=== PATIENT | male | born 1945 | race Caucasian/White ===

== ENCOUNTER 2020-10-06 09:44 | Day surgery (SDC) | payer MEDICARE, OTHER ==
[2020-10-06] MEDS ORDERED: Sodium Chloride 0.9% 10 ML Syringe IV ONE (09:45)
[2020-10-06] MEDS ORDERED: Acetaminophen 325 MG Tab PO PRN (09:45)
[2020-10-06] MEDS ORDERED: Ondansetron 4 MG/2 ML SDV IVPUSH PRN (09:45)
[2020-10-06] MEDS ORDERED: Dexamethasone 4 MG/ML SDV IV ONE (09:45)
[2020-10-06] MEDS ORDERED: Sodium Chloride 0.9% 10 ML Syringe FLUSH PRN (09:45)
[2020-10-06] MEDS ORDERED: Acetaminophen/Codeine 300-30 MG Tab PO PRN (09:45)
[2020-10-06] MEDS ORDERED: Midazolam 1 MG/ML 2 ML SDV IV ONE (09:45)
[2020-10-06] MEDS: Proparacaine 0.5% Ophth Soln 15 ML Bottle EYERT ONE (10:08)
[2020-10-06] MEDS: Povidone-Iodine 5% Sterile Ophth Soln 30 ML Bottle EYERT ONE ×2 (10:09→10:46)
[2020-10-06] MEDS: Moxifloxacin 0.5% Ophth Soln 3 ML Bottle EYERT ONE (10:09)
[2020-10-06] MEDS: Phenylephrine 10% Ophth Soln 5 ML Bot EYERT ONE (10:10)
[2020-10-06] MEDS: Tropicamide 1% Ophth Soln 15 ML Bottle EYERT ONE (10:11)
[2020-10-06] MEDS: Timolol Maleate 0.5% Ophth Soln 5 ML Bottle EYERT ONE (10:11)
[2020-10-06] MEDS: Cataract Ophth Solution EYERT ONE (10:12)
[2020-10-06] MEDS: Tetracaine HCl/PF 0.5% 4 ML Bottle EYERT ONE (10:46)
[2020-10-06] MEDS: Diclofenac Sodium 0.1% Ophth Soln 5 ML Bottle EYERT ONE (10:46)
[2020-10-06] MEDS: Dexamethasone/Neomycin/Polymyxin B Ophth Oint 3.5 GM Tube EYERT ONE (10:47)
[2020-10-06] MEDS: Balanced Salt Solution Ophth Irrig 500 ML Bottle IOCULAR ONE (10:47)
[2020-10-06] MEDS: Chondroitin Sulfate/Hyaluronate Sodium Ophth Inj 0.75 ML Syringe EYERT ONE (10:47)
[2020-10-06] MEDS: Apraclonidine 0.5% Ophth Soln 5 ML Bot EYERT ONE (10:47)
[2020-10-06] MEDS: Vancomycin 500 MG SDV EYERT ONE (10:48)
[2020-10-06] MEDS: Acetylcholine 20 MG/2 ML Intraocular Inj Kit EYERT ONE (10:48)
[2020-10-06] MEDS: Chondroitin Sulfate/Hyaluronate Sodium Ophth Inj 0.5 ML Syringe IOCULAR ONE (10:48)
[2020-10-06] MEDS: Lidocaine 1% 30 ML SDV ONE (10:48)
--- NOTE | 2020-10-06 13:07 | OR ---
DATE: 10/06/2020 PREOPERATIVE DIAGNOSES: 1. Visually significant mixed cataract, right eye. 2. Primary open angle glaucoma, right eye. POSTOPERATIVE DIAGNOSES: 1. Visually significant mixed cataract, right eye. 2. Primary open angle glaucoma, right eye. PROCEDURES: 1. Extracapsular cataract extraction with intraocular lens implant. 2. Placement of Hydrus stent for glaucoma control. SURGEON: Ifeanyi Whitley MD ANESTHESIA: Local MAC. INDICATION: Mr. Mcclain was seen in the clinic. He is unhappy with his vision. He has difficulty seeing television, difficulty doing paperwork, difficulty seeing road signs, difficulty reading. Examination revealed visually significant mixed cataract and mild primary open angle glaucoma. I explained options, offered cataract surgery, and I explained risks including the potential for infection, retinal detachment, loss of vision, need for additional surgery, amongst others. He did see his regular production line operator, Dr. Burks. Dr. Burks was not able to improve his vision with a change in glasses. We discussed implant options. He has requested a monofocal implant. I recommended surgery with the Hydrus stent. OPERATIVE DESCRIPTION: The patient was prepped and draped in a sterile fashion and topical anesthesia was applied. Attention was placed on the operative eye. A sterile lid speculum was placed to allow operative exposure. Paracentesis was made temporal. Intracameral lidocaine was administered. Viscoelastic was injected. A full-thickness corneal incision was made using the trapezoidal blade. Bent needle cystotome was then used to make a small bernard in the anterior capsule and a 360-degree curvilinear capsulorrhexis was created. Nucleus was then hydrodissected and hydrodelineated using balanced saline solution. Nucleus was then decompressed centrally and rotated and noted to be free of adhesions. Nucleus was then removed using the phacoemulsification handpiece. Additional viscoelastic was then injected into the capsular bag and the intraocular lens was inserted into the capsular bag. The Hydrus stent portion of the procedure was then performed. Following removal of the nucleus and cortex, the irrigation and aspiration handpiece was inserted to remove viscoelastic from the posterior surface of the IOL. Additional viscoelastic was then inserted into the anterior chamber angle directly opposite the corneal incision. Miochol was injected into the nasal iris to promote pupillary contraction. The patient's head was then rotated 35 degrees away from the initial position. The operating microscope was also rotated 35 degrees to achieve the proper orientation. The gonioprism was then placed onto the eye. The Hydrus stent was then inserted into the anterior chamber with the right hand and the stent was introduced into the pigmented trabecular meshwork. The stent was advanced beneath the trabecular meshwork until approximately two-thirds of the body was covered and then the stent was released from the insertion device. The stent was then tapped into its final resting position using the insertion device. The device was then reinspected to ensure that it was securely in position. The viscoelastic was aspirated from the anterior chamber. Wound and paracentesis sites were hydrated using balanced saline solution. Vancomycin 0.1 mL was injected into the anterior chamber. Intraocular lens was inspected and noted to be clear and well centered. Postoperative drops were placed and a sterile eye patch and shield were placed over the operative eye. The patient was then transported to the postoperative recovery area having tolerated the procedure well. No complications occurred. [facility] /[id number]
[2020-10-07 08:10] VITALS: BP 110/52; PULSE 63
== END 2020-10-06 12:03 | disposition home or self-care (01) ==
LOC: DL.SDS 09:44
PROVIDERS: ATTEND Ophthalmology
DX: H26.8 Other specified cataract (principal); H40.1111 Primary open-angle glaucoma, right eye, mild stage; I10 Essential (primary) hypertension; E78.5 Hyperlipidemia, unspecified; G47.30 Sleep apnea, unspecified; R25.2 Cramp and spasm; Z86.73 Personal history of transient ischemic attack (TIA), and cerebral infarction without residual deficits; Z87.891 Personal history of nicotine dependence
CPT/HCPCS: 00142; A9270-GY; J1100; J2250; J3370; V2632; V2787-GY

== ENCOUNTER 2020-10-13 09:21 | Day surgery (SDC) | payer MEDICARE, OTHER ==
[2020-10-13] MEDS ORDERED: Sodium Chloride 0.9% 10 ML Syringe IV ONE (09:22)
[2020-10-13] MEDS ORDERED: Midazolam 1 MG/ML 2 ML SDV IV ONE (09:22)
[2020-10-13] MEDS ORDERED: Dexamethasone 4 MG/ML SDV IV ONE (09:22)
[2020-10-13] MEDS ORDERED: Acetaminophen 325 MG Tab PO PRN (10:15)
[2020-10-13] MEDS ORDERED: Timolol Maleate 0.5% Ophth Soln 5 ML Bottle EYELF ONE (10:15)
[2020-10-13] MEDS ORDERED: Acetaminophen/Codeine 300-30 MG Tab PO PRN (10:15)
[2020-10-13] MEDS ORDERED: Tropicamide 1% Ophth Soln 15 ML Bottle EYELF ONE (10:15)
[2020-10-13] MEDS ORDERED: Phenylephrine 10% Ophth Soln 5 ML Bot EYELF ONE (10:15)
[2020-10-13] MEDS ORDERED: Cataract Ophth Solution EYELF ONE (10:15)
[2020-10-13] MEDS ORDERED: Sodium Chloride 0.9% 10 ML Syringe FLUSH PRN (10:15)
[2020-10-13] MEDS ORDERED: Moxifloxacin 0.5% Ophth Soln 3 ML Bottle EYELF ONE (10:15)
[2020-10-13] MEDS ORDERED: Povidone-Iodine 5% Sterile Ophth Soln 30 ML Bottle EYELF ONE ×2 (10:15→10:43)
[2020-10-13] MEDS ORDERED: Proparacaine 0.5% Ophth Soln 15 ML Bottle EYELF ONE (10:15)
[2020-10-13] MEDS ORDERED: Ondansetron 4 MG/2 ML SDV IVPUSH PRN (10:15)
[2020-10-13] MEDS ORDERED: Tetracaine HCl/PF 0.5% 4 ML Bottle EYELF ONE (10:42)
[2020-10-13] MEDS ORDERED: Dexamethasone/Neomycin/Polymyxin B Ophth Oint 3.5 GM Tube EYELF ONE (10:43)
[2020-10-13] MEDS ORDERED: Apraclonidine 0.5% Ophth Soln 5 ML Bot EYELF ONE (10:43)
[2020-10-13] MEDS ORDERED: Diclofenac Sodium 0.1% Ophth Soln 5 ML Bottle EYELF ONE (10:43)
[2020-10-13] MEDS ORDERED: Vancomycin 500 MG SDV EYELF ONE (10:44)
[2020-10-13] MEDS ORDERED: Lidocaine 1% 30 ML SDV ONE (10:44)
[2020-10-13] MEDS ORDERED: Balanced Salt Solution Ophth Irrig 500 ML Bottle IOCULAR ONE (10:44)
[2020-10-13] MEDS ORDERED: Chondroitin Sulfate/Hyaluronate Sodium Ophth Inj 0.5 ML Syringe IOCULAR ONE (10:44)
[2020-10-13] MEDS ORDERED: Chondroitin Sulfate/Hyaluronate Sodium Ophth Inj 0.75 ML Syringe EYELF ONE (10:44)
[2020-10-13] MEDS ORDERED: Acetylcholine 20 MG/2 ML Intraocular Inj Kit EYELF ONE (10:45)
--- NOTE | 2020-10-13 14:08 | OR ---
DATE: 10/13/2020 PREOPERATIVE DIAGNOSES: 1. Visually significant mixed cataract, left eye. 2. Primary open angle glaucoma, left eye. POSTOPERATIVE DIAGNOSES: 1. Visually significant mixed cataract, left eye. 2. Primary open angle glaucoma, left eye. PROCEDURES: 1. Extracapsular cataract extraction with intraocular lens implant. 2. Placement of Hydrus stent for glaucoma control. SURGEON: Ifeanyi Whitley MD ANESTHESIA: Local MAC. INDICATION: Mr. Mcclain was seen in the clinic. He is unhappy with his vision. He has difficulty seeing television, difficulty doing paperwork, difficulty seeing street signs. He has noticed a slow progressive change and difficulty driving over the last 1 year. He saw his regular apparel fashion designer, Dr. Burks. Dr. Burks was not able to improve his vision with a change in glasses. I explained options, offered cataract surgery, and I explained risks including the potential for infection, retinal detachment, loss of vision, need for additional surgery, amongst others. We discussed implant options. He has requested a monofocal implant. He has a history of mild primary open-angle glaucoma and I recommended surgery with a Hydrus stent. OPERATIVE DESCRIPTION: The patient was prepped and draped in a sterile fashion and topical anesthesia was applied. Attention was placed on the operative eye. A sterile lid speculum was placed to allow operative exposure. Paracentesis was made temporal. Intracameral lidocaine was administered. Viscoelastic was injected. A full-thickness corneal incision was made using the trapezoidal blade. Bent needle cystotome was then used to make a small bernard in the anterior capsule and a 360-degree curvilinear capsulorrhexis was created. Nucleus was then hydrodissected and hydrodelineated using balanced saline solution. Nucleus was then decompressed centrally and rotated and noted to be free of adhesions. Nucleus was then removed using the phacoemulsification handpiece. Additional viscoelastic was then injected into the capsular bag and the intraocular lens was inserted into the capsular bag. The Hydrus stent portion of the procedure was then performed. Following removal of the nucleus and cortex, the irrigation and aspiration handpiece was inserted to remove viscoelastic from the posterior surface of the IOL. Additional viscoelastic was then inserted into the anterior chamber angle directly opposite the corneal incision. Miochol was injected into the nasal iris to promote pupillary contraction. The patient's head was then rotated 35 degrees away from the initial position. The operating microscope was also rotated 35 degrees to achieve the proper orientation. The gonioprism was then placed onto the eye. The Hydrus stent was then inserted into the anterior chamber with the right hand and the stent was introduced into the pigmented trabecular meshwork. The stent was advanced beneath the trabecular meshwork until approximately two-thirds of the body was covered and then the stent was released from the insertion device. The stent was then tapped into its final resting position using the insertion device. The device was then reinspected to ensure that it was securely in position. The viscoelastic was aspirated from the anterior chamber. Wound and paracentesis sites were hydrated using balanced saline solution. Vancomycin 0.1 mL was injected into the anterior chamber. Intraocular lens was inspected and noted to be clear and well centered. Postoperative drops were placed and a sterile eye patch and shield were placed over the operative eye. The patient was then transported to the postoperative recovery area having tolerated the procedure well. No complications occurred. [facility] /[id number]
[2020-10-13 14:24] VITALS: BP 119/52; PULSE 66
== END 2020-10-13 11:58 | disposition home or self-care (01) ==
LOC: DL.SDS 09:21
PROVIDERS: ATTEND Ophthalmology
DX: H26.8 Other specified cataract (principal); H40.1121 Primary open-angle glaucoma, left eye, mild stage; I10 Essential (primary) hypertension; Z87.891 Personal history of nicotine dependence; Z86.73 Personal history of transient ischemic attack (TIA), and cerebral infarction without residual deficits; Z86.010 Personal history of colon polyps
CPT/HCPCS: 00142; A9270-GY; J1100; J2250; J3370; V2632; V2787-GY

== ENCOUNTER 2023-01-10 14:56 | Observation (INO) | payer MEDICARE, OTHER ==
[2023-01-10] MEDS ORDERED: Sodium Chloride 0.9% 10 ML Syringe FLUSH PRN (15:08)
[2023-01-10 15:17] LABS: BASOPHILS PERCENT AUTO 0.1 % (0.0-1.0); EOSINOPHILS PERCENT AUTO 1.1 % (1.0-3.0); HEMATOCRIT 39.9 % (40.0-54.0); HEMOGLOBIN 13.6 g/dL (14.0-18.0); LYMPHOCYTES PERCENT AUTO 15.2 % (20.5-50.1); MEAN CORPUSCULAR HEMOGLOBIN 31.1 pg (27.0-34.0); MEAN CORPUSCULAR HGB CONC 34.1 g/dL (33.0-35.0); MEAN CORPUSCULAR VOLUME 91.3 fL (80-100); MONOCYTES PERCENT AUTO 17.7 % (2-8); NEUTROPHILS PERCENT AUTO 65.9 % (42.2-75.2); PLATELET COUNT,PLT 205 10^3/uL (150-450); RED BLOOD CELL COUNT 4.37 10^6/uL (4.6-6.2); WHITE BLOOD CELL COUNT,WBC 7.5 10^3/uL (5.0-10.0)
[2023-01-10 15:43] LABS: ANION GAP 12.7 mEq/L (7-13); CALCIUM 9.2 mg/dL (8.5-10.1); CREATININE 0.94 mg/dL (0.70-1.30); EST CRCL DRUG DOSING (CG) 53.36 mL/min; POTASSIUM,K 3.7 mmol/L (3.5-5.1)
[2023-01-10 16:08] LABS: CORONAVIRUS COVID-19 NAA NEGATIVE (NEGATIVE); INFLUENZA A NAA NEGATIVE (NEGATIVE); INFLUENZA B NAA NEGATIVE (NEGATIVE)
[2023-01-10] MEDS ORDERED: Sodium Chloride 0.9% 500 ML IV SCH (17:30)
[2023-01-10] MEDS ORDERED: Albuterol/Ipratropium 3.0-0.5 MG/3 ML Neb Soln NEB PRN (18:51)
[2023-01-10] MEDS ORDERED: Ondansetron 4 MG/2 ML SDV IVPUSH PRN (18:51)
[2023-01-10] MEDS ORDERED: Acetaminophen 325 MG Tab PO PRN (18:51)
[2023-01-10] MEDS ORDERED: Naloxone 2 MG/2 ML Syringe IVPUSH PRN (18:51)
[2023-01-10] MEDS ORDERED: HYDROmorphone 0.5 MG/0.5 ML Syringe IVPUSH PRN (18:51)
[2023-01-10] MEDS ORDERED: Metoprolol Tartrate 5 MG/5 ML SDV IVPUSH PRN (19:00)
[2023-01-10] MEDS ORDERED: Polyvinyl Alcohol 1.4% Ophth Soln 15 ML Bottle EYEBOTH PRN (19:00)
[2023-01-10] MEDS ORDERED: diphenhydrAMINE 25 MG Tab PO PRN (19:00)
[2023-01-10] MEDS ORDERED: KETOROLAC EYERT PRN (19:00)
[2023-01-10] MEDS ORDERED: Loperamide 2 MG Cap PO PRN (19:00)
[2023-01-10] MEDS ORDERED: hydrALAZINE 20 MG/ML SDV IVPUSH PRN (19:00)
[2023-01-10] MEDS ORDERED: Sodium Chloride 0.9% 1,000 ML IV SCH (19:00)
[2023-01-10 19:28] LABS: T4 FREE 1.14 ng/dL (0.76-1.46); TSH ULTRASENSITIVE 0.6 uIU/mL (0.36-3.74)
[2023-01-10] MEDS ORDERED: Simvastatin 40 MG Tab PO SCH (21:00)
[2023-01-10] MEDS ORDERED: Metoprolol Succinate 50 MG Tab.ER PO SCH (21:00)
[2023-01-11 06:44] LABS: HEMATOCRIT 38.2 % (40.0-54.0); MEAN CORPUSCULAR HEMOGLOBIN 31.3 pg (27.0-34.0); PLATELET COUNT,PLT 164 10^3/uL (150-450); RED BLOOD CELL COUNT 4.15 10^6/uL (4.6-6.2); WHITE BLOOD CELL COUNT,WBC 4.8 10^3/uL (5.0-10.0)
[2023-01-11 06:50] LABS: BASOPHILS PERCENT AUTO 0.4 % (0.0-1.0); EOSINOPHILS PERCENT AUTO 5.4 % (1.0-3.0); LYMPHOCYTES PERCENT AUTO 25.7 % (20.5-50.1); MONOCYTES PERCENT AUTO 22.3 % (2-8); NEUTROPHILS PERCENT AUTO 46.2 % (42.2-75.2)
[2023-01-11 07:04] LABS: A/G RATIO 0.85; ALBUMIN 2.9 g/dL (3.4-5.0); ANION GAP 9.9 mEq/L (7-13); BILIRUBIN TOTAL 0.6 mg/dL (0.2-1.0); BUN/CREATININE RATIO 14.1 (No establ ref range); CALCIUM 8.5 mg/dL (8.5-10.1); CREATININE 0.85 mg/dL (0.70-1.30); EST CRCL DRUG DOSING (CG) 59.01 mL/min; MAGNESIUM 1.9 mg/dL (1.8-2.4); POTASSIUM,K 3.9 mmol/L (3.5-5.1); PROTEIN TOTAL,TP 6.3 g/dL (6.4-8.2)
[2023-01-11 07:09] LABS: BAND PERCENT MAN 5 %; EOSINOPHILS PERCENT MAN 2 % (1-3); LYMPHOCYTES PERCENT MAN 25 % (20-50); MONOCYTES PERCENT MAN 8 % (2-8); SEG NEUTROPHILS PERCENT MAN 60 % (42-75)
[2023-01-11] MEDS ORDERED: Lisinopril 20 MG Tab PO SCH (09:00)
[2023-01-11] MEDS ORDERED: Famotidine 20 MG Tab PO SCH (09:00)
[2023-01-11] MEDS ORDERED: Non-Formulary Medication 1 Each (Ofloxacin [Ocuflox 0.3% Ophth Soln] 5 ML Bottle) EYERT SCH (09:00)
[2023-01-11] MEDS ORDERED: prednisoLONE Acetate 1% Ophth Susp 5 ML Bottle EYERT SCH (09:00)
[2023-01-11] MEDS ORDERED: Ascorbic Acid 500 MG Tab PO SCH (09:00)
[2023-01-11] MEDS ORDERED: Multivitamin Tab PO SCH (09:00)
[2023-01-11] MEDS ORDERED: Latanoprost 0.005% Ophth Soln 2.5 ML Bottle EYEBOTH SCH (09:00)
[2023-01-11] MEDS ORDERED: Non-Formulary Medication 1 Each (Zinc [Zinc] 50 MG Tablet) PO SCH (09:00)
[2023-01-11] MEDS ORDERED: Aspirin 81 MG Tab.EC PO SCH (09:00)
[2023-01-11] MEDS ORDERED: Hydrochlorothiazide 25 MG Tab PO SCH (09:00)
[2023-01-11] MEDS ORDERED: Cholecalciferol (Vitamin D3) 25 MCG Tab PO SCH (09:00)
[2023-01-11 10:37] VITALS: BP 134/61; PULSE 72
== END 2023-01-11 11:45 | disposition home or self-care (01) ==
LOC: DL.ED 14:56 → DL.MS 18:05 → UNDOADMOB 18:06
PROVIDERS: ADMIT Internal Medicine; ATTEND Internal Medicine
DX: R55 Syncope and collapse (principal); R19.7 Diarrhea, unspecified; K92.2 Gastrointestinal hemorrhage, unspecified; E86.0 Dehydration; D64.9 Anemia, unspecified; R77.8 Other specified abnormalities of plasma proteins; I77.9 Disorder of arteries and arterioles, unspecified; I10 Essential (primary) hypertension; E78.5 Hyperlipidemia, unspecified; K21.9 Gastro-esophageal reflux disease without esophagitis; E78.00 Pure hypercholesterolemia, unspecified; M54.9 Dorsalgia, unspecified; G89.29 Other chronic pain; Z20.822 Contact with and (suspected) exposure to COVID-19; Z86.73 Personal history of transient ischemic attack (TIA), and cerebral infarction without residual deficits; Z79.82 Long term (current) use of aspirin; Z79.899 Other long term (current) drug therapy; Z95.828 Presence of other vascular implants and grafts
CPT/HCPCS: 0240U; 36415; 70450; 80048; 80053; 80061; 82272; 83735; 84439; 84443; 84484; 85025; 87046; 87086; 93005; 93880; 99222; 99238; 99285; A9270; G0378; J7030; J7040; J3490